=== PATIENT | female | born 1995 | race Caucasian/White ===

== ENCOUNTER 2024-06-20 06:34 | Emergency (ER) | payer MEDICAID, SELFPAY ==
[2024-06-20] VITALS (13 sets, daily range): BP systolic 112–152; BP diastolic 68–97; PULSE 101–116; RESP 14–20; TEMP 36.7–37.1; O2SAT 96–99
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
[2024-06-20 07:07] LABS: BE (Venous) 0 mmol/L (-2-3); HCO3 (Venous) 25 mmol/L (23-28); O2 Sat (Venous) 81 %; TCO2 (Venous) 23 mmol/L (24-29); pCO2 (Venous) 43 mmHg (41-51); pH (Venous) 7.37 (7.31-7.41); pO2 (Venous) 46 mmHg
[2024-06-20 07:13] LABS: Abs Immature Grans 0.08 10^3/uL (0.0-0.06); Absolute Basophil Count 0.06 10^3/uL (0.0-0.2); Absolute Eosinophil Count 0.11 10^3/uL (0.0-0.7); Absolute Lymphocyte Count 2.53 10^3/uL (1.2-3.4); Absolute Monocyte Count 0.39 10^3/uL (0.1-0.8); Basophils % 0.6 %; Eosinophils % 1.1 %; HCT 38.3 % (36.0-46.0); Immature Grans % 0.8 %; Lymphocytes % 24.9 %; MCH 23.9 pg (27.0-33.0); MCHC 31.3 % (32.0-36.0); MCV 76 fL (80-95); MPV 10.2 fL (8.0-11.0); Monocytes % 3.8 %; Neutrophils % 68.8 %; Platelet Count 341 10^3/uL (130-400); RBC 5.03 10^6/uL (3.93-5.22); RDW 14.4 % (11.7-14.6); RDW-SD 39.5 fL; WBC 10.17 10^3/uL (4.4-10.8)
[2024-06-20] MEDS: Lactated Ringers 1,000 ML 1000 ML IV (07:19)
[2024-06-20] MEDS: levoFLOXacin 750 MG/150 ML BAG 100 MG IVPB (07:20)
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
[2024-06-20] MEDS: Budesonide/Formoterol 160/4.5 6 GM 60 PUFF INH IH (07:33)
[2024-06-20 07:34] LABS: ALT 183 U/L (14-59); AST 69 U/L (15-37); Albumin 3.7 g/dL (3.4-5.0); Alkaline Phosphatase 111 U/L (46-116); BUN 18 mg/dL (7-18); Bilirubin, Total 0.35 mg/dL (0.2-1.0); CREATININE 0.9 mg/dL (0.55-1.02); Calcium 9.2 mg/dL (8.5-10.1); Chloride 106 mmol/L (98-107); Estimated GFR 90.42 (mL/min/1.73m2); Glucose 108 mg/dL (74-106); Potassium 4.1 mmol/L (3.5-5.1); Sodium 143 mmol/L (136-145); Total Protein 7.2 g/dL (6.4-8.2)
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
[2024-06-20] MEDS: Inhaler, Assist Device 1 EACH MC (08:31)
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
[2024-06-20] MEDS: Acetaminophen 500 MG TAB 1000 MG PO (09:54)
== END 2024-06-20 10:35 | disposition home or self-care (01) ==
LOC: ER 08:34
PROVIDERS: Student in an Organized Health Care Education/Training Program; Emergency Provider Emergency Medicine
DX: J69.0 Pneumonitis due to inhalation of food and vomit (principal); R06.02 Shortness of breath; W69.XXXA Accidental drowning and submersion while in natural water, initial encounter; X38.XXXA Flood, initial encounter
CPT/HCPCS: 00123; 36415; 76604; 80053; 81025; 82805; 96361; 96365; 99284; 71045; 85025; 99283; J1956